=== PATIENT | female | born 1995 | race Hispanic/Latino ===

== ENCOUNTER 2022-02-19 15:38 | Day surgery (SDC) | payer OTHER ==
[2022-02-19] MEDS ORDERED: hydrALAZINE 20 MG/ML VIAL SLOW IVP PRN (17:05)
[2022-02-19 17:39] LABS: Bilirubin Neg (Negative); Blood, Urine Negative (Negative); Clarity Clear (Clear); Glucose, Urine (Dipstick) Normal (Negative); Ketone, Urine Negative (Negative); Leukocyte 25 (Negative); Nitrite Negative (Negative); Protein, Urine (Dipstick) Negative (Neg-Trace); Specific Gravity, Urine 1.005 (1.002-1.036); Urobilinogen Normal mg/dL (Less than 2)
[2022-02-19 17:45] LABS: Fetal Membranes Rupture No Membranes Rupture (No Rupture)
[2022-02-19 17:47] LABS: Urine Culture Reflex No No
[2022-02-19 17:52] LABS: Bacteria/HPF Rare-Few HPF (None Seen); RBC/HPF 0-3 HPF (0-3); WBC/HPF 0-3 HPF (0-3)
[2022-02-19] MEDS ORDERED: Acetaminophen 500 MG TAB PO SCH (18:00)
[2022-02-19] MEDS: Lactated Ringer's 1,000 ML IV SCH ×2 (18:19→19:25)
[2022-02-19 18:47] LABS: SARS-CoV-2 NAA Rapid Test Not Detected (NotDetected)
== END 2022-02-19 20:25 | disposition home or self-care (01) ==
LOC: CSHLD/OP 15:38
PROVIDERS: ATTEND Obstetrics & Gynecology
DX: O36.8130 Decreased fetal movements, third trimester, not applicable or unspecified (principal); O99.891 Other specified diseases and conditions complicating pregnancy; J01.00 Acute maxillary sinusitis, unspecified; O34.211 Maternal care for low transverse scar from previous cesarean delivery; Z3A.37 37 weeks gestation of pregnancy; Z20.822 Contact with and (suspected) exposure to COVID-19
CPT/HCPCS: 76815; 81001; 84112; 96360; 96361; 99284

== ENCOUNTER 2022-02-23 16:22 | Day surgery (SDC) | payer OTHER ==
[2022-02-23] MEDS ORDERED: hydrALAZINE 20 MG/ML VIAL SLOW IVP PRN (16:35)
== END 2022-02-23 18:45 | disposition home or self-care (01) ==
LOC: CSHLD/OP 16:22
PROVIDERS: ATTEND Emergency Medicine
DX: O36.8130 Decreased fetal movements, third trimester, not applicable or unspecified (principal); O34.211 Maternal care for low transverse scar from previous cesarean delivery; Z3A.37 37 weeks gestation of pregnancy
CPT/HCPCS: 76819; 99282

== ENCOUNTER 2022-02-24 14:55 | Inpatient (IN) | payer MEDICAID, OTHER ==
[2022-02-24] MEDS ORDERED: hydrALAZINE 20 MG/ML VIAL SLOW IVP PRN (16:27)
[2022-02-24] MEDS ORDERED: Ondansetron PF 4 MG/2 ML Vial IVP PRN (16:27)
[2022-02-24] MEDS ORDERED: Acetaminophen 500 MG TAB PO PRN (16:27)
[2022-02-24] MEDS ORDERED: Famotidine/PF 20 mg/2ml Vial SLOW IVP PRN (16:27)
[2022-02-24] MEDS ORDERED: Promethazine HCl 25 MG/ML VIAL IM PRN (16:27)
[2022-02-24] MEDS ORDERED: Bicitra 30 ML UDCUP PO PRN (16:27)
[2022-02-24] MEDS ORDERED: CEFAZOLIN 2 GM in Sodium Chloride 0.9% 100 ML IVPB SCH (16:45)
[2022-02-24 17:25] VITALS: BMI 34.9
[2022-02-24 17:38] LABS: Hemoglobin 11.6 g/dL (12.0-15.5); Mean Corpuscular HGB CONC 34.9 g/dL (32.0-36.0); Mean Corpuscular Hemoglobin 31.8 pg (27.0-33.0); Mean Platelet Volume 10.6 fl (7.4-10.4); Platelet Count 257 10x3/uL (150-450); RBC Distribution Width 12.9 % (11.5-14.5); Red Blood Cell (RBC) Count 3.65 10x6/uL (3.90-5.03); White Blood Cell (WBC) Count 12.1 10x3/uL (3.5-10.5)
[2022-02-24 18:11] LABS: Hep B Surf Ag Non-Reactive S/CO (NonReactive); Syphilis Antibody Nonreactive (Nonreactive); Syphilis Antibody Index 0.03 S/CO (<1.00 Non-Reactive)
[2022-02-24 18:18] LABS: HBSAg Index 0.16 S/CO (0-0.99)
[2022-02-24] MEDS: Lactated Ringer's 1,000 ML IV SCH (22:09)
[2022-02-25] MEDS: Lactated Ringer's 1,000 ML IV SCH ×3 (06:08→20:03)
[2022-02-25] MEDS ORDERED: Famotidine/PF 20 mg/2ml Vial ONE (07:08)
[2022-02-25] MEDS ORDERED: CEFAZOLIN 2 GM VIAL ONE (07:14)
[2022-02-25] MEDS ORDERED: Oxytocin 10 UNITS/ML VIAL ONE (07:18)
[2022-02-25] MEDS ORDERED: Ketorolac Tromethamine 30 MG/ML VIAL ONE (07:18)
[2022-02-25] MEDS ORDERED: Phenylephrine 40 MG/NS 250 ML 250 ML ONE (07:18)
[2022-02-25] MEDS ORDERED: Dexamethasone 4 mg/ml Vial ONE (07:19)
[2022-02-25] MEDS ORDERED: Ondansetron PF 4 MG/2 ML Vial ONE (07:19)
[2022-02-25] MEDS ORDERED: Metoclopramide HCl 10 MG/2 ML VIAL ONE (07:19)
[2022-02-25] MEDS ORDERED: Morphine PF 10 MG/10 ML VIAL ONE (07:20)
[2022-02-25] MEDS ORDERED: Methylergonovine 0.2 MG/ML VIAL ONE (08:14)
[2022-02-25] MEDS ORDERED: Fentanyl 100 MCG/2 ML VIAL ONE ×2 (08:22→11:18)
[2022-02-25] MEDS ORDERED: Phytonadione Neonatal 1 MG/0.5 ML AMP ONE (08:47)
[2022-02-25] MEDS ORDERED: Erythromycin Base 0.5% Oint 1 GM TUBE ONE (08:47)
[2022-02-25] MEDS ORDERED: Naloxone HCl 0.4 mg/ml Vial IV PRN (09:09)
[2022-02-25] MEDS ORDERED: diphenhydrAMINE 50 MG/ML VIAL IVP PRN (09:09)
[2022-02-25] MEDS ORDERED: Promethazine HCl 25 MG/ML VIAL IM PRN (09:09)
[2022-02-25] MEDS ORDERED: Promethazine HCl 25 MG SUPP PR PRN (09:09)
[2022-02-25] MEDS ORDERED: Meperidine HCl/PF 25 MG/ML VIAL SLOW IVP PRN (09:09)
[2022-02-25] MEDS ORDERED: Naloxone HCl 0.4 mg/ml Vial IVP PRN ×2 (09:09)
[2022-02-25] MEDS ORDERED: Fentanyl 100 MCG/2 ML VIAL SLOW IVP PRN (09:09)
[2022-02-25] MEDS ORDERED: Ondansetron HCl/PF 4 MG/2 ML Vial IVP PRN (09:09)
[2022-02-25] MEDS ORDERED: Moisturizing Cream (Eucerin) 113 GM JAR TOP PRN (09:09)
[2022-02-25] MEDS ORDERED: Ondansetron PF 4 MG/2 ML Vial IVP PRN ×2 (09:09→16:35)
[2022-02-25] MEDS ORDERED: Communication Order-Pharmacy FS SCH (09:15)
[2022-02-25] MEDS ORDERED: diphenhydrAMINE 50 MG/ML VIAL IVP SCH (11:15)
[2022-02-25] MEDS ORDERED: Misoprostol 200 MCG TAB PR PRN (16:35)
[2022-02-25] MEDS ORDERED: NS w/ Oxytocin 30 units 500 ML IV SCH (16:35)
[2022-02-25] MEDS ORDERED: Lanolin Ointment 7 GM TUBE TOP PRN (16:35)
[2022-02-25] MEDS ORDERED: Methylergonovine 0.2 MG/ML VIAL IM PRN (16:35)
[2022-02-25] MEDS ORDERED: hydrALAZINE 20 MG/ML VIAL SLOW IVP PRN (16:35)
[2022-02-25] MEDS ORDERED: Simethicone Chewable 80 MG TAB PO PRN (16:35)
[2022-02-25] MEDS ORDERED: diphenhydrAMINE 25 MG CAP PO PRN (16:35)
[2022-02-25] MEDS ORDERED: Boostrix 0.5 ML (Tdap) VIAL IM ONE (16:35)
[2022-02-25] MEDS: Ketorolac Tromethamine 30 MG/ML VIAL IVP PRN (20:03)
[2022-02-25] MEDS: Ferrous Sulfate 325 MG TAB PO SCH (23:37)
[2022-02-26] MEDS: Ketorolac Tromethamine 30 MG/ML VIAL IVP PRN (04:16)
[2022-02-26 04:52] LABS: Hemoglobin 9.8 g/dL (12.0-15.5); Mean Corpuscular HGB CONC 33.2 g/dL (32.0-36.0); Mean Corpuscular Hemoglobin 31.3 pg (27.0-33.0); Mean Corpuscular Volume 94.2 fl (81.6-98.3); Mean Platelet Volume 10.2 fl (7.4-10.4); Platelet Count 184 10x3/uL (150-450); RBC Distribution Width 13.2 % (11.5-14.5); Red Blood Cell (RBC) Count 3.13 10x6/uL (3.90-5.03); White Blood Cell (WBC) Count 11.6 10x3/uL (3.5-10.5)
[2022-02-26] MEDS: Acetaminophen 325 MG TAB PO PRN ×2 (09:04→12:56)
[2022-02-26] MEDS: Ferrous Sulfate 325 MG TAB PO SCH ×2 (09:04→21:26)
[2022-02-26] MEDS: Prenatal Vitamin 1 TAB PO SCH (09:04)
[2022-02-26] MEDS ORDERED: HYDROcodone/Acetaminophen 7.5/325 mg Tablet PO PRN (13:07)
[2022-02-26] MEDS: Ibuprofen 800 MG TAB PO SCH ×2 (14:41→21:26)
[2022-02-27] MEDS: Ibuprofen 800 MG TAB PO SCH (06:03)
[2022-02-27 07:54] VITALS: BP 112/70; TEMP 98.1
[2022-02-27] MEDS: Prenatal Vitamin 1 TAB PO SCH (09:46)
[2022-02-27] MEDS: Ferrous Sulfate 325 MG TAB PO SCH (09:46)
== END 2022-02-27 11:20 | disposition home or self-care (01) | DRG 787 ==
LOC: CSHLD 14:55 → CSHPP 02-25 16:34
PROVIDERS: ADMIT Emergency Medicine; ATTEND Emergency Medicine
PROC: 10D00Z1 Extraction of Products of Conception, Low, Open Approach (ICD-10-PCS; principal; 2022-02-25)
DX: O41.03X0 Oligohydramnios, third trimester, not applicable or unspecified (principal); O72.1 Other immediate postpartum hemorrhage; Z3A.37 37 weeks gestation of pregnancy; Z37.0 Single live birth; O36.8130 Decreased fetal movements, third trimester, not applicable or unspecified; E66.9 Obesity, unspecified; O99.214 Obesity complicating childbirth; O34.211 Maternal care for low transverse scar from previous cesarean delivery; Z90.49 Acquired absence of other specified parts of digestive tract
CPT/HCPCS: 36415; 51702; 76819; 85027; 86780; 86850; 86900; 86901; 87340; 99282; J1100; J1200; J1885; J2210; J2274; J2310; J2405; J2590; J2765; J3010; J7120; S0028